=== PATIENT | male | born 1970 | race Caucasian/White ===

== ENCOUNTER → 2016-05-07 | Outpatient (CLI) | payer OTHER | LOC: FIMAGING 07:55 | PROVIDERS: ATTEND Family Medicine | DX: N50.89 Other specified disorders of the male genital organs (principal) ==

== ENCOUNTER → 2017-05-13 | Outpatient (CLI) | payer OTHER | LOC: FIMAGING 08:11 | PROVIDERS: ATTEND Family Medicine | DX: R22.42 Localized swelling, mass and lump, left lower limb (principal) ==

== ENCOUNTER → 2017-08-19 | Outpatient (CLI) | payer OTHER | LOC: FIMAGING 13:48 | PROVIDERS: ATTEND Family Medicine | DX: M25.511 Pain in right shoulder (principal) ==

== ENCOUNTER → 2017-12-03 | Outpatient (CLI) | payer OTHER | LOC: FIMAGING 18:01 | PROVIDERS: ATTEND Family Medicine | DX: M79.601 Pain in right arm (principal); M75.31 Calcific tendinitis of right shoulder; M75.21 Bicipital tendinitis, right shoulder ==